=== PATIENT | male | born 1975 ===

== ENCOUNTER 2016-07-23 21:57 | Emergency (ER) | payer SELFPAY ==
[2016-07-23 22:05] VITALS: BP 122/84; PULSE 68; TEMP 99; BMI 19.5
--- NOTE | 2016-07-23 22:05 | PDOC ---
History of Present Illness - General Chief Complaint: Injury Stated Complaint: INJURY TO RIGHT RING FINGER Time Seen by Provider: 07/23/16 22:01 - History of Present Illness Initial Comments: 07/24/16 04:49 jammed finger while playing basketball c/o localized pain has not taken anything for it pmh:denies fhx: noncontrib ros: reviewed and otherwise negative Past History - Past Medical History Allergies/Adverse Reactions: Allergies Allergy/AdvReac Type Severity Reaction Status Date / Time No Known Allergies Allergy Verified 07/23/16 21:59 Home Medications: Ambulatory Orders NK [No Known Home Medication] 07/23/16 *Physical Exam - Physical Exam General Appearance: Yes: Nourished HEENT: positive: Normal Voice Musculoskeletal: positive: Normal Inspection Extremity: positive: Other (r 4th finger tender at pip jt with edema, rom limited by pain) Integumentary: positive: Normal Color Neurologic: positive: Fully Oriented Medical Decision Making - Medical Decision Making 07/24/16 04:51 plain films- fx of proximal head of middle phalange a/p finger fx splint ice analgesia ortho fu *DC/Admit/Observation/Transfer Diagnosis at time of Disposition: Finger fracture, right - Discharge Dispostion Disposition: HOME Condition at time of disposition: Stable - Referrals Referrals: Randall Muñoz MD [Staff Physician] - 1 week - Patient Instructions Printed Discharge Instructions: Finger Fracture
== END 2016-07-23 22:27 | disposition home or self-care (01) ==
LOC: FER 21:57
PROC: 2W3JX1Z Immobilization of Right Finger using Splint (ICD-10-PCS; principal; 2016-07-23)
DX: S62.644A Nondisplaced fracture of proximal phalanx of right ring finger, initial encounter for closed fracture (principal); Y93.67 Activity, basketball; Y92.9 Unspecified place or not applicable
CPT/HCPCS: 73140-TC-RT; 99281-25